=== PATIENT | male | born 1975 | race Caucasian/White ===

== ENCOUNTER 2024-04-27 19:53 | Inpatient (IN) | payer MEDICAID, OTHER ==
--- NOTE | 2024-04-27 20:46 | ED ---
General Adult HPI - General Source: patient Mode of arrival: ambulatory Limitations: no limitations <Jace Norris - Last Filed: 04/28/24 16:26> <Rena Real - Last Filed: 04/28/24 16:58> - General Chief complaint: Psychiatric Symptoms Stated complaint: petition Time Seen by Provider: 04/27/24 20:33 - History of Present Illness Initial comments: Patient brought to the ED by law enforcement for evaluation of suicidal ideations. Patient states that he has felt suicidal for the past several days. Patient states that he has had thoughts of jumping off of a bridge, but has not done so. Patient denies any suicidal attempt. Patient states that he has been diagnosed with depression in the past, but he states that he is currently not taking any medications. Patient denies illicit drug use. Patient denies medication abuse or overdose. Patient does admit to drinking alcohol occasionally, and he states that he has had some beers to drink tonight, but he cannot tell me exactly how many. Patient denies trauma/injury/fall, any pain, fever or chills, headache, focal neuro deficit, chest pain, dyspnea, p alpitations, dizziness, abdominal pain, nausea or vomiting, or any other symptoms or complaints. Patient has been petitioned. (Jace Norris) - Related Data Home Medications Medication Instructions Recorded Confirmed Vitamin B Complex/Folic Acid 0.4 mg PO DAILY 04/28/24 04/28/24 [Vitamin B Complex Tablet] Allergies Allergy/AdvReac Type Severity Reaction Status Date / Time Sulfa (Sulfonamide Allergy Unknown Verified 04/28/24 08:30 Antibiotics) Childhood Review of Systems ROS Other: All systems not noted in ROS Statement are negative. <Jcae Norris - Last Filed: 04/28/24 16:26> ROS Other: All systems not noted in ROS Statement are negative. <Rena Real - Last Filed: 04/28/24 16:58> ROS Statement: Those systems with pertinent positive or pertinent negative responses have been documented in the HPI. Past Medical History Past Medical History: Unable to Obtain History of Any Multi-Drug Resistant Organisms: Unobtainable Past Surgical History: Unable to Obtain Past Psychological History: Unable to Obtain Smoking Status: Unknown if ever smoked Past Alcohol Use History: Unable to Obtain Past Drug Use History: Unable to Obtain <Jace Norris - Last Filed: 04/28/24 16:26> General Exam Limitations: no limitations General appearance: alert, appears intoxicated Head exam: Present: atraumatic, normocephalic Eye exam: Present: PERRL, EOMI ENT exam: Present: mucous membranes moist Respiratory exam: Present: normal lung sounds bilaterally. Absent: respiratory distress, wheezes, rales, rhonchi, stridor Cardiovascular Exam: Present: regular rate, normal rhythm, normal heart sounds, other (Normal radial pulses bilaterally) GI/Abdominal exam: Present: soft. Absent: distended, tenderness, guarding Extremities exam: Absent: tenderness, pedal edema Neurological exam: Present: alert, oriented X3, CN II-XII intact. Absent: motor sensory deficit Psychiatric exam: Present: depressed Skin exam: Present: warm, dry, intact, normal color <MaurizioJace pickens - Last Filed: 04/28/24 16:26> Course <MaurizioJace pickens - Last Filed: 04/28/24 16:26> Vital Signs 04/27/24 04/28/24 19:55 00:34 Temperature 98 F Pulse Rate 89 77 Respiratory 18 14 Rate Blood Pressure 131/84 103/57 O2 Sat by Pulse 97 95 Oximetry - Reevaluation(s) Reevaluation #1: 04/27/24 23:13 Patient was endorsed to Dr. Harding (secondary to end of my shift) with EPS evaluation for placement still pending. (Jace Norris) Medical Decision Making <Jace Norris - Last Filed: 04/28/24 16:26> <Rena Real - Last Filed: 04/28/24 16:58> - Medical Decision Making Was pt. sent in by a medical professional or institution (, PA, PRIMARY MONTESSORI TEACHER, urgent care, hospital, or fci...) When possible be specific @ -No Did you speak to anyone other than the patient for history (EMS, parent, family, police, friend...)? What history was obtained from this source @ -No Did you review nursing and triage notes (agree or disagree)? Why? @ -I reviewed and agree with nursing and triage notes Were old charts reviewed (outside hosp., previous admission, EMS record, old EKG, old radiological studies, urgent care reports/EKG's, fci records)? Report findings @ -No old charts were reviewed Differential Diagnosis (chest pain, altered mental status, abdominal pain women, abdominal pain men, vaginal bleeding, weakness, fever, dyspnea, syncope, headache, dizziness, GI bleed, back pain, seizure, CVA, palpatations, mental health, musculoskeletal)? @ -Suicidal ideations, depression, anxiety, bipolar disorder, psychiatric disease, alcohol abuse, drug abuse, this is not a complete list. EKG interpreted by me (3pts min.). @ -None done X-rays interpreted by me (1pt min.). @ -None done CT interpreted by me (1pt min.). @ -None done U/S interpreted by me (1pt. min.). @ -None done What testing was considered but not performed or refused? (CT, X-rays, U/S, labs)? Why? @ -None What meds were considered but not given or refused? Why? @ -None Did you discuss the management of the patient with other professionals (professionals i.e. , PA, PRIMARY MONTESSORI TEACHER, lab, RT, psych nurse, social media manager, manager of internal, teacher, medical corps officer, caseworker intake)? Give summary @ -No Was smoking cessation discussed for >3mins.? @ -No Was critical care preformed (if so, how long)? @ -No Were there social determinants of health that impacted care today? How? (Homelessness, low income, unemployed, alcoholism, drug addiction, transportation, low edu. Level, literacy, decrease access to med. care, long term, rehab)? @ -No Was there de-escalation of care discussed even if they declined (Discuss DNR or withdrawal of care, Hospice)? DNR status @ -No What co-morbidities impacted this encounter? (DM, HTN, Smoking, COPD, CAD, Cancer, CVA, ARF, Chemo, Hep., AIDS, mental health diagnosis, sleep apnea, morbid obesity)? @ -None Was patient admitted / discharged? Hospital course, mention meds given and route, prescriptions, significant lab abnormalities, going to OR and other pertinent info. @ -Patient brought to the ED by law enforcement due to suicidal ideations. Patient has been petitioned. Patient is currently awaiting EPS evaluation for placement. Patient was endorsed to Dr. Harding (secondary to end of my shift). (Jace Norris) Was patient admitted / discharged? Hospital course, mention meds given and route, prescriptions, significant lab abnormalities, going to OR and other pertinent info. @ -EPS does evaluate the patient and feels that the patient needs to be admitted. He does sign himself in Undiagnosed new problem with uncertain prognosis? @ -No Drug Therapy requiring intensive monitoring for toxicity (Heparin, Nitro, Insulin, Cardizem)? @ -No Were any procedures done? @ -No Diagnosis/symptom? @ -Acute depression, suicidal ideations Acute, or Chronic, or Acute on Chronic? @ -Acute Uncomplicated (without systemic symptoms) or Complicated (systemic symptoms)? @ -Complicated Side effects of treatment? @ -No Exacerbation, Progression, or Severe Exacerbation? @ -No Poses a threat to life or bodily function? How? (Chest pain, USA, ID, pneumonia, PE, COPD, DKA, ARF, appy, cholecystitis, CVA, Diverticulitis, Homicidal, Suicidal, threat to staff... and all critical care pts) @ -Yes as patient wants to harm himself (Rena Real) - Lab Data Lab Results 04/27/24 04/28/24 Range/Units 20:57 01:43 Urine Opiates Screen Not Detected (NotDetected) Ur Oxycodone Screen Not Detected (NotDetected) Urine Methadone Screen Not Detected (NotDetected) Ur Barbiturates Screen Not Detected (NotDetected) U Tricyclic Antidepress Not Detected (NotDetected) Ur Phencyclidine Scrn Not Detected (NotDetected) Ur Amphetamines Screen Not Detected (NotDetected) U Methamphetamines Scrn Not Detected (NotDetected) U Benzodiazepines Scrn Not Detected (NotDetected) Urine Cocaine Screen Not Detected (NotDetected) U Marijuana (THC) Screen Not Detected (NotDetected) Influenza Type A (PCR) Not Detected (Not Detectd) Influenza Type B (PCR) Not Detected (Not Detectd) RSV (PCR) Not Detected (Not Detectd) SARS-CoV-2 (PCR) Not Detected (Not Detectd) Disposition Is patient prescribed a controlled substance at d/c from ED?: No <Jace Norris - Last Filed: 04/28/24 16:26> <Rena Real - Last Filed: 04/28/24 16:58> Clinical Impression: Suicidal ideation, Alcohol abuse Disposition: TRANSFER TO PSYCH HOSP/UNIT Condition: Stable
[2024-04-28 03:02] LABS: Amphetamine Screen,Urine Not Detected (NotDetected); Barbiturate Screen,Urine Not Detected (NotDetected); Benzodiazepines Screen,Urine Not Detected (NotDetected); Cocaine Screen,Urine Not Detected (NotDetected); Methadone Screen, Urine Not Detected (NotDetected); Opiate Screen,Urine Not Detected (NotDetected); Oxycodone Screen, Urine Not Detected (NotDetected); Phencyclidine Screen,Urine Not Detected (NotDetected); Tricyclic Antidepressant,Urine Not Detected (NotDetected); Urn Cannabinoid Scrn Not Detected (NotDetected)
[2024-04-28] MEDS ORDERED: MAG HYDROX/AL HYDROX/SIMETH 30 ML CUP PO PRN (15:44)
[2024-04-28] MEDS ORDERED: MAGNESIUM HYDROXIDE 2,400 MG/30 ML CUP PO PRN (15:44)
[2024-04-28] MEDS ORDERED: LORazepam 1 MG TAB PO PRN ×2 (15:44)
[2024-04-28] MEDS ORDERED: ACETAMINOPHEN TAB 325 MG TAB PO PRN (15:44)
[2024-04-28 17:06] LABS: Appearance,Urine Clear (Clear); Bilirubin,Urine Negative (Negative); Blood,Urine Negative (Negative); Color,Urine Colorless; Glucose,Urine (UA) Negative (Negative); Ketones,Urine Negative (Negative); Leukocyte Esterase,Urine Negative (Negative); Nitrite,Urine Negative (Negative); Protein,Urine Negative (Negative); Specific Gravity,Urine 1.012 (1.001-1.035); Urobilinogen,Urine <2.0 mg/dL (<2.0)
[2024-04-28] MEDS ORDERED: hydrOXYzine HCL 50 MG/ML 1 ML VIAL IM PRN (18:00)
[2024-04-28] MEDS: hydrOXYzine pamoate 25 MG CAP PO SCH (18:39)
[2024-04-28] MEDS: IBUPROFEN 600 MG TAB PO PRN (18:40)
--- NOTE | 2024-04-29 03:31 | P.CONS ---
History of Present Illness - Reason for Consult Consult date: 04/29/24 - History of Present Illness The patient is a 48-year-old male with no known PMH who presents to the emergency room with complaints of depression and suicidal ideation. The patient was admitted to the mental health unit where he was seen and evaluated. Patient notes that he has had multiple stays at [facility] due to his alcohol abuse for which he recently relapsed. Patient did not wish to talk about how much he drinks. He denied any substance use. Reports currently being homeless. Notes that he is depressed as he is unable to secure employment due to his significant DUI history. Denied experiencing any physical complaints at the time of interview. Denied experiencing chest discomfort, shortness of breath, fever, chills, cough, nausea, vomiting, abdominal pain, diarrhea. Review of systems: Pertinent positives and negatives as discussed in HPI, a complete review of systems was performed and all other systems are negative. Physical examination: General: non toxic, no distress, appears at stated age, overweight Derm: no unusual rashes/lesions, no unusual ecchymoses, warm, dry Head: atraumatic, normocephalic, symmetric Eyes: EOMI, no lid lag, anicteric sclera ENT: Nose and ears atraumatic, no thrush, no pharyngeal erythema Neck: trachea midline, supple Mouth: no lip lesion, mucus membranes moist Cardiovascular: S1S2 reg, no murmur, no edema Lungs: CTA bilateral, no rhonchi, no rales , no accessory muscle use Abdominal: soft, nontender to palpation, no guarding Ext: no gross muscle atrophy, no contractures, Neuro: No gross focal neuro deficits noted Psych: Alert, oriented, appropriate affect Assessment: Alcohol abuse Depression and suicidal ideation Imaging: None performed Data Review: Laboratory evaluation reviewed with UA and urine toxicology unremarkable with respiratory viral panel also negative Plan: Advised on the importance of cessation Defer management of depression and suicidal ideation to the primary psychiatry service Thank you for allowing us to participate in the care of this patient. We will follow peripherally. Do not hesitate to contact us with questions. Someone can be reached from the [facility] hospitalist group at all hours of the day at [phone]. Past Medical History Past Medical History: Unable to Obtain Additional Past Medical History / Comment(s): Eczema History of Any Multi-Drug Resistant Organisms: Unobtainable Past Surgical History: Unable to Obtain Past Anesthesia/Blood Transfusion Reactions: No Reported Reaction Smoking Status: Current every day smoker, Unknown if ever smoked - Past Family History Mother History Unknown: Yes Medications and Allergies Home Medications Medication Instructions Recorded Confirmed Type Vitamin B Complex/Folic Acid 0.4 mg PO DAILY 04/28/24 04/28/24 History [Vitamin B Complex Tablet] Allergies Allergy/AdvReac Type Severity Reaction Status Date / Time Sulfa (Sulfonamide Allergy Unknown Verified 04/28/24 08:30 Antibiotics) Childhood Physical Exam Vitals: Vital Signs Temp Pulse Pulse Resp BP BP Pulse Ox 04/28/24 19:03 98.6 F 85 122/61 98 04/28/24 18:12 98.1 F 68 18 138/85 99 Intake and Output 04/28/24 04/28/24 04/29/24 14:59 22:59 06:59 Other: Weight 85.956 kg
[2024-04-29] MEDS: NICOTINE 21MG/24HR PATCH TRANSDERM SCH (07:57)
[2024-04-29] MEDS: MULTIVITAMINS, THERA 1 EACH TAB PO SCH (07:58)
[2024-04-29] MEDS: FOLIC ACID 1 MG TAB PO SCH (07:58)
[2024-04-29] MEDS: THIAMINE 100 MG TAB PO SCH (07:58)
[2024-04-29 08:38] LABS: Basophils % (A) 1 %; Eosinophils # (A) 0.2 k/uL (0-0.7); Eosinophils % (A) 4 %; HGB 16.5 gm/dL (13.0-17.5); Lymphocytes % (A) 38 %; MCH 32.3 pg (25.0-35.0); MCHC 32.3 g/dL (31.0-37.0); Mean Platelet Volume 7.5; Monocytes # (A) 0.5 k/uL (0-1.0); Monocytes % (A) 10 %; Neutrophils # (A) 2.3 k/uL (1.3-7.7); Neutrophils % (A) 45 %; Platelet Count 166 k/uL (150-450); RDW 11.9 % (11.5-15.5); WBC 5.2 k/uL (3.8-10.6)
[2024-04-29 08:57] LABS: ALT 33 U/L (4-49); AST 38 U/L (17-59); African American GFR (CKD) >90 (>60 ml/min/1.73 sqM); Albumin 4.4 g/dL (3.5-5.0); Alkaline Phosphatase 75 U/L (38-126); Anion Gap 6 mmol/L; Bilirubin, Delta 0.3 mg/dL (0.0-0.2); Bilirubin,Unconjugated 1.4 mg/dL (0.0-1.1); Blood Urea Nitrogen 13 mg/dL (9-20); Calcium 9.1 mg/dL (8.4-10.2); Carbon Dioxide 31 mmol/L (22-30); Chloride 103 mmol/L (98-107); Glucose 92 mg/dL (74-99); Non-African American GFR(CKD) >90 (>60 ml/min/1.73 sqM); Potassium 4.3 mmol/L (3.5-5.1); Sodium 140 mmol/L (137-145); Total Bilirubin 1.7 mg/dL (0.2-1.3); Total Protein 7.1 g/dL (6.3-8.2)
[2024-04-29] MEDS ORDERED: hydrOXYzine pamoate 25 MG CAP PO PRN (12:17)
--- NOTE | 2024-04-29 12:37 | P.HP ---
Psychiatric H&P - . H&P Date: 04/29/24 History & Physical: Allergies Allergy/AdvReac Type Severity Reaction Status Date / Time Sulfa (Sulfonamide Allergy Unknown Verified 04/28/24 08:30 Antibiotics) Childhood Vital Signs Temp 98.4 F 04/29/24 06:34 Pulse 57 L 04/29/24 06:34 Resp 16 04/29/24 06:34 BP 106/63 04/29/24 06:34 Pulse Ox 95 04/29/24 06:34 FiO2 Intake & Output 04/28/24 04/29/24 04/29/24 18:59 06:59 18:59 Weight 859.558 kg 85.956 kg Laboratory Last Values WBC 5.2 k/uL (3.8-10.6) 04/29/24 08:06 RBC 5.10 m/uL (4.30-5.90) 04/29/24 08:06 Hgb 16.5 gm/dL (13.0-17.5) 04/29/24 08:06 Hct 51.0 % (39.0-53.0) 04/29/24 08:06 MCV 100.0 fL (80.0-100.0) 04/29/24 08:06 MCH 32.3 pg (25.0-35.0) 04/29/24 08:06 MCHC 32.3 g/dL (31.0-37.0) 04/29/24 08:06 RDW 11.9 % (11.5-15.5) 04/29/24 08:06 Plt Count 166 k/uL (150-450) 04/29/24 08:06 MPV 7.5 04/29/24 08:06 Neutrophils % 45 % 04/29/24 08:06 Lymphocytes % 38 % 04/29/24 08:06 Monocytes % 10 % 04/29/24 08:06 Eosinophils % 4 % 04/29/24 08:06 Basophils % 1 % 04/29/24 08:06 Neutrophils # 2.3 k/uL (1.3-7.7) 04/29/24 08:06 Lymphocytes # 2.0 k/uL (1.0-4.8) 04/29/24 08:06 Monocytes # 0.5 k/uL (0-1.0) 04/29/24 08:06 Eosinophils # 0.2 k/uL (0-0.7) 04/29/24 08:06 Basophils # 0.0 k/uL (0-0.2) 04/29/24 08:06 Sodium 140 mmol/L (137-145) 04/29/24 08:06 Potassium 4.3 mmol/L (3.5-5.1) 04/29/24 08:06 Chloride 103 mmol/L (98-107) 04/29/24 08:06 Carbon Dioxide 31 mmol/L (22-30) H 04/29/24 08:06 Anion Gap 6 mmol/L 04/29/24 08:06 BUN 13 mg/dL (9-20) 04/29/24 08:06 Creatinine 0.79 mg/dL (0.66-1.25) 04/29/24 08:06 Est GFR (CKD-EPI)AfAm >90 (>60 ml/min/1.73 sqM) 04/29/24 08:06 Est GFR (CKD-EPI)NonAf >90 (>60 ml/min/1.73 sqM) 04/29/24 08:06 Glucose 92 mg/dL (74-99) 04/29/24 08:06 Calcium 9.1 mg/dL (8.4-10.2) 04/29/24 08:06 Total Bilirubin 1.7 mg/dL (0.2-1.3) H 04/29/24 08:06 Conjugated Bilirubin 0.0 mg/dL (0.0-0.3) 04/29/24 08:06 Unconjugated Bilirubin 1.4 mg/dL (0.0-1.1) H 04/29/24 08:06 Delta Bilirubin 0.3 mg/dL (0.0-0.2) H 04/29/24 08:06 AST 38 U/L (17-59) 04/29/24 08:06 ALT 33 U/L (4-49) 04/29/24 08:06 Alkaline Phosphatase 75 U/L (38-126) 04/29/24 08:06 Total Protein 7.1 g/dL (6.3-8.2) 04/29/24 08:06 Albumin 4.4 g/dL (3.5-5.0) 04/29/24 08:06 Urine Color Colorless 04/28/24 01:43 Urine Appearance Clear (Clear) 04/28/24 01:43 Urine pH 5.0 (5.0-8.0) 04/28/24 01:43 Ur Specific [place] 1.012 (1.001-1.035) 04/28/24 01:43 Urine Protein Negative (Negative) 04/28/24 01:43 Urine Glucose (UA) Negative (Negative) 04/28/24 01:43 Urine Ketones Negative (Negative) 04/28/24 01:43 Urine Blood Negative (Negative) 04/28/24 01:43 Urine Nitrite Negative (Negative) 04/28/24 01:43 Urine Bilirubin Negative (Negative) 04/28/24 01:43 Urine Urobilinogen <2.0 mg/dL (<2.0) 04/28/24 01:43 Ur Leukocyte Esterase Negative (Negative) 04/28/24 01:43 Urine Opiates Screen Not Detected (NotDetected) 04/28/24 01:43 Ur Oxycodone Screen Not Detected (NotDetected) 04/28/24 01:43 Urine Methadone Screen Not Detected (NotDetected) 04/28/24 01:43 Ur Barbiturates Screen Not Detected (NotDetected) 04/28/24 01:43 U Tricyclic Antidepress Not Detected (NotDetected) 04/28/24 01:43 Ur Phencyclidine Scrn Not Detected (NotDetected) 04/28/24 01:43 Ur Amphetamines Screen Not Detected (NotDetected) 04/28/24 01:43 U Methamphetamines Scrn Not Detected (NotDetected) 04/28/24 01:43 U Benzodiazepines Scrn Not Detected (NotDetected) 04/28/24 01:43 Urine Cocaine Screen Not Detected (NotDetected) 04/28/24 01:43 U Marijuana (THC) Screen Not Detected (NotDetected) 04/28/24 01:43 Influenza Type A (PCR) Not Detected (Not Detectd) 04/27/24 20:57 Influenza Type B (PCR) Not Detected (Not Detectd) 04/27/24 20:57 RSV (PCR) Not Detected (Not Detectd) 04/27/24 20:57 SARS-CoV-2 (PCR) Not Detected (Not Detectd) 04/27/24 20:57 04/29/24 09:13 IDENTIFYING DATA: Patient is a 48-year-old male. Kicked out of sober living house Monday. . 2 children. Unemployed. HPI: Patient presented to the hospital on 04/28. As per EPS note, "Patient was brought in by EMS for suicidal ideation with plan to jump off bridge. Patient was assessed in ER12 from [id number]. Patient states that he was feeling overwhelmed and was having a panic attack, and began having thoughts of killing himself with plan. Patient states he called EMS on himself for safety. Patient states he is depressed, hopeless at this time. Patient states he is overwhelmed with looking for a job. Patient states he has been sober from alcohol for 45 days and relapsed yesterday and started drinking because he felt like "life was too much". Patient verbalizes good appetite, fair sleep, and denies complaints with attending to hygiene. Patient states he has been trying to find a job, but has not had any luck. Patient denies having any hobbies or denies having anything that brings him veronica. Patient states he is depressed he does not have anyone to talk to besides the other residents in the sober living. But denies having any family or friends support system. Patient denies homicidal ideation. Patient denies delusions including paranoia, and no delusional statements noted on assessment. Patient verbalizes that he has attempted to get into counselling or outpatient mental health but has had no luck getting in touch with providers. Patient denies any history of inpatient psychiatric treatment." Upon today's assessment, he states that he relapsed on alcohol, with the stress of not finding a job. He got kicked out of the sober living house he was staying at, but is welcome back once he gets treatment. He states he drank all day Monday a monday, and was acting crazy in public, and it was his cry for help. He states he called the police early Monday, and told the police that he was going to go crazy that night, and went to the bus stop to lock his bike up. He is denying any withdraw symptoms from alcohol. He states that he has no problems with sleep. He states that the assisted told him he could only stay there 3 days, so he came to the hospital. Patient states that he would like to get into rehab. Import Export Agent encouraged patient to participate in treatment, patient verbalized understanding. Patient denies any suicidal or homicidal ideations intent or plan. At this time patient denies any auditory or visual hallucinations. Patient denies any flight of ideas racing thoughts and increased in goal directed behavior. Patient admits to using alcohol. PAST PSYCHIATRIC HISTORY: Patient states that he has never had inpatient psychiatric treatment, and he denies any outpatient psychiatric follow-up or psychiatric medications. He states he stopped all meds in 2019, and at that time was diagnosed as major depressive disorder. [Patient denies any history of suicide attempts in the past.] PMH:As per ER note ALLERGIES: as per EMR CHEMICAL DEPENDENCY HISTORY: as per HPI FAMILY PSYCHIATRIC/SUBSTANCE USE HISTORY: [denies] SOCIAL HISTORY: Patient was born and raised in [place], [place]. He has done some college, . 2 children. unemployed. Has has 3 DUI's, and been in [facility] this.. MENTAL STATUS EXAM: General Appearance: Patient appears to be [] stated age is alert, [directable, and attempts to cooperate]. Patient appears to have fair hygiene and grooming. Short hair, trimmed garza. Dressed casually, wearing glasses. Behavior: Patient is seated without any agitated behavior. Poor eye contact. Speech: Patient's speech is [fluent and nonpressured.] Mood/Affect: Patient reports their mood is [depressed and stressed out], affect is congruent and constricted. Suicidality/Homicidality: Patient denies having any homicidal ideation intent or plan. [Denies any suicidal ideations intent or plan] Perceptions: Patient denies any visual hallucinations [and denies any auditory hallucinations] Though content/process: [There is no evidence of any delusional thought content and seems resistive to treatment. Memory and concentration: AOX3, grossly intact for the purposes of this session. Can spell "WORLD" backwards Judgment and insight: [poor] STRENGTHS/WEAKNESSES: strength is that patient is [resilient]. Weakness is that patient [has poor judgment and is impulsive] INTELLECT: [average] IMPRESSIONS: major depressive disorder, without psychotic features Alcohol use disorder nicotine dependance PLAN: -Patient is admitted under [voluntary] status to MHU for stabilization of psychiatric symptoms and safety. Patient has signed adult voluntary form and medication consent] and is placed in patient's chart. -Medications : Will start patient on Cymbalta 30mg daily for depression/anxiety, buspar 5mg po bid for anxiety, Remeron 15mg qhs for sleep. Visteral PRN for anxiety. -Ativan [and Haldol] PRN for agitation/aggression [-Started thiamine, MVM for etoh use] [-CIWA protocol with Ativan PRN for ETOH withdrawal] [-Patient was counselled on substance abuse and desired to cut back on use] -Patient was informed of the risks, benefits and side effects of the medication [and patient verbally consented to taking the medications. ] -Internal Medicine consult to perform medical evaluation and physical. -NRT - patch -SW on board for discharge planning. Encourage patient to participate in groups to work on coping skills.
[2024-04-29] MEDS: busPIRone HCl 5 MG TAB PO SCH (12:43)
[2024-04-29] MEDS: DULoxetine HCL 30 MG CAPSULE.DR PO SCH (12:43)
[2024-04-29 16:06] LABS: LDL Cholesterol,Calculated 91.7 mg/dL (0.0-131.0)
[2024-04-29] MEDS: MIRTAZAPINE 15 MG TAB PO SCH (20:29)
--- NOTE | 2024-04-30 11:36 | P.PN ---
Progress Note - Text Progress Note Date: 04/30/24 Interval History: Patient was seen in group, and was directable and agreeable to speak with kary cochran in the office. He states that he is doing a bit better today, and he is no longer as anxious as he was. He said he don't feel as worried about things now. He endorses good sleep last night, he does state that he woke up early, around 5 am. He claims his appetite is good. Patient is interested in going to [facility] upon discharge. Patient is denying any withdraw symptoms. At this time patient denies any suicidal or homicidal ideations, intent or plan. Patient denies any auditory, visual hallucinations and denies any paranoia or delusions. Patient denies any side effects from the medications and has been compliant with meds. MENTAL STATUS EXAM: General Appearance: Patient appears to be stated age is alert, directable, and attempts to cooperate. Patient appears to have fair hygiene and grooming. Short hair, trimmed garza. Dressed casually, wearing glasses. Behavior: Patient is seated without any agitated behavior. improved eye contact. Speech: Patient's speech is [fluent and nonpressured. Mood/Affect: Patient reports their mood is a bit better, affect is congruent and constricted. Suicidality/Homicidality: Patient denies having any homicidal ideation intent or plan. [Denies any suicidal ideations intent or plan] Perceptions: Patient denies any visual hallucinations and denies any auditory hallucinations Though content/process: There is no evidence of any delusional thought content is linear, rambles at times, circumstantial. Memory and concentration: AOX3, grossly intact for the purposes of this session Judgment and insight: poor, mildly improving IMPRESSIONS: major depressive disorder, without psychotic features Alcohol use disorder nicotine dependance PLAN: -Patient is admitted under voluntary] status to MHU for stabilization of psychiatric symptoms and safety. Patient has signed adult voluntary form and medication consent] and is placed in patient's chart. -Medications :Cymbalta 30mg daily for depression/anxiety, increase buspar 10mg po bid for anxiety, Remeron 15mg qhs for sleep. Visteral PRN for anxiety. -Ativan [and Haldol] PRN for agitation/aggression -Started thiamine, MVM for etoh use] -CIWA protocol with Ativan PRN for ETOH withdrawal] -NRT - nicotine patch -SW on board for discharge planning. Encourage patient to participate in groups to work on coping skills. possible discharge in 2-3 days if patient is improving. awaiting [facility] approval and intake date.
[2024-04-30] MEDS: busPIRone HCl 10 MG TAB PO SCH (20:24)
--- NOTE | 2024-05-01 11:48 | P.PN ---
Progress Note - Text Progress Note Date: 05/01/24 Interval History: Patient was seen in the hallway, and was directable and agreeable to speak with consumer loan underwriter in the office. He states he is doing much better today, he feels calmer, and more patient. He is future orientated, and excited what is to come. He is feeling positive. He states his depression and anxiety are improving quite a bit with the medications. Patient is attending groups, and being social on the unit. He denies any withdraw symptoms. He is endorsing good sleep. He claims his a ppetite is good. Patient is interested in going to [place] upon discharge. Patient is denying any withdraw symptoms. At this time patient denies any suicidal or homicidal ideations, intent or plan. Patient denies any auditory, visual hallucinations and denies any paranoia or delusions. Patient denies any side effects from the medications and has been compliant with meds. MENTAL STATUS EXAM: General Appearance: Patient appears to be stated age is alert, directable, and attempts to cooperate. Patient appears to have fair hygiene and grooming. Short hair, trimmed garza. Dressed casually, wearing glasses. Behavior: Patient is seated without any agitated behavior. improved eye contact. Speech: Patient's speech is fluent and nonpressured. Mood/Affect: Patient reports their mood is much better, positive, affect is congruent and constricted. mildly improving Suicidality/Homicidality: Patient denies having any homicidal ideation intent or plan. Denies any suicidal ideations intent or plan Perceptions: Patient denies any visual hallucinations and denies any auditory hallucinations Though content/process: There is no evidence of any delusional thought content is linear, mildly improving Memory and concentration: AOX3, grossly intact for the purposes of this session Judgment and insight: poor, mildly improving IMPRESSIONS: major depressive disorder, without psychotic features Alcohol use disorder nicotine dependance PLAN: -Patient is admitted under voluntary status to MHU for stabilization of psychiatric symptoms and safety. Patient has signed adult voluntary form and med ication consent and is placed in patient's chart. -Medications : Cymbalta 30 mg daily for depression/anxiety, buspar 10 mg po bid for anxiety, Remeron 15 mg qhs for sleep. Visteral PRN for anxiety. -Ativan and Haldol PRN for agitation/aggression -Started thiamine, MVM for etoh use -KRYSTLE protocol with Ativan PRN for ETOH withdrawal -NRT - nicotine patch -SW on board for discharge planning. Encourage patient to participate in groups to work on coping skills. possible discharge in 2-3 days if patient is improving. awaiting [facility] approval and intake date.
[2024-05-02] MEDS ORDERED: LORazepam 1 MG TAB PO PRN (11:54)
--- NOTE | 2024-05-02 11:58 | P.PN ---
Progress Note - Text Progress Note Date: 05/02/24 Interval History: Patient was seen in group, and was directable and agreeable to speak with magazine writer in the office. He states he is doing pretty good today. He is not endorsing any anxiety or depression today. He has accepted the fact that he needs to get his mental health and sobriety under control. He is endorsing good sleep through the night. He claims his appetite is good. Patient continues to show interest in going to [place] upon discharge. Patient is denying any withdraw symptoms. At this time patient denies any suicidal or homicidal ideations, intent or plan. Patient denies any auditory, visual hallucinations and denies any paranoia or delusions. Patient denies any side effects from the medications and has been compliant with meds. MENTAL STATUS EXAM: General Appearance: Patient appears to be stated age is alert, directable, and attempts to cooperate. Patient appears to have fair hygiene and grooming. Short hair, trimmed garza. Dressed casually, wearing glasses. Behavior: Patient is seated without any agitated behavior. improved eye contact. Speech: Patient's speech is fluent and nonpressured. Mood/Affect: Patient reports their mood is pretty good and optimistic, affect is congruent and constricted. mildly improving Suicidality/Homicidality: Patient denies having any homicidal ideation intent or plan. Denies any suicidal ideations intent or plan Perceptions: Patient denies any visual hallucinations and denies any auditory hallucinations Though content/process: There is no evidence of any delusional thought content is linear and goal orientated, mildly improving Memory and concentration: AOX3, grossly intact for the purposes of this session Judgment and insight: poor, mildly improving IMPRESSIONS: major depressive disorder, without psychotic features Alcohol use disorder nicotine dependance PLAN: -Patient is admitted under voluntary status to MHU for stabilization of psychiatric symptoms and safety. Patient has signed adult voluntary form and medication consent and is placed in patient's chart. -Medications : Cymbalta 30 mg daily for depression/anxiety, buspar 10 mg po bid for anxiety, Remeron 15 mg qhs for sleep. Vistaril PRN for anxiety. -Ativan and Haldol PRN for agitation/aggression -Started thiamine, MVM for etoh use -d/c [facility] protocol -NRT - nicotine patch -SW on board for discharge planning. Encourage patient to participate in groups to work on coping skills. Likely discharge Monday directly to rehab, if patient continues improving. awaiting [facility] approval and intake date.
--- NOTE | 2024-05-03 11:44 | P.PN ---
Progress Note - Text Progress Note Date: 05/03/24 Interval History: Patient was seen in group, and was directable and agreeable to speak with junior underwriter in the office. He states he is well today. He states that he is feeling pretty balanced today. He does complain that he got some restless legs last night, probably due to Remeron. He states that he would like to just have melatonin. He is accepted to [place], and will be going there upon discharge, on Monday morning. Patient offered no other complaints. At this time patient denies any suicidal or homicidal ideations, intent or plan. Patient denies any auditory, visual hallucinations and denies any paranoia or delusions. Patient denies any side effects from the medications and has been compliant with meds. MENTAL STATUS EXAM: General Appearance: Patient appears to be stated age is alert, directable, and attempts to cooperate. Patient appears to have fair hygiene and grooming. Short hair, trimmed garza. Dressed casually, wearing glasses. Behavior: Patient is seated without any agitated behavior. improved eye contact. Speech: Patient's speech is fluent and nonpressured. Mood/Affect: Patient reports their mood is pretty good and optimistic, affect is congruent and constricted. improving Suicidality/Homicidality: Patient denies having any homicidal ideation intent or plan. Denies any suicidal ideations intent or plan Perceptions: Patient denies any visual hallucinations and denies any auditory hallucinations Though content/process: There is no evidence of any delusional thought content is linear and goal orientated, improving Memory and concentration: AOX3, grossly intact for the purposes of this session Judgment and insight: improving IMPRESSIONS: major depressive disorder, without psychotic features Alcohol use disorder nicotine dependance PLAN: -Patient is admitted under voluntary status to MHU for stabilization of psychiatric symptoms and safety. Patient has signed adult voluntary form and medication consent and is placed in patient's chart. -Medications : Cymbalta 30 mg daily for depression/anxiety, buspar 10 mg po bid for anxiety, change Remeron 15 mg qhs prn for sleep. Vistaril PRN for anxiety. Add Melatonin 10mg qhs for sleep. -Ativan and Haldol PRN for agitation/aggression -Started thiamine, MVM for etoh use -NRT - nicotine patch -SW on board for discharge planning. Encourage patient to participate in groups to work on coping skills. Discharge Monday directly to rehab, if patient continues improving. Patient is approved for [place].
[2024-05-03] MEDS: MELATONIN 5 MG TABLET PO SCH (21:14)
[2024-05-04 07:56] VITALS: RESP 18
--- NOTE | 2024-05-04 13:40 | P.PN ---
Progress Note - Text Interval history: Patient was seen in his room and was directable and agreeable to speak with typewriter aligner. denies anxiety and withdrawal symptoms. At this time patient denies any suicidal or homicidal ideations intent or plan. Denies any Auditory or visual hallucinations. Patient denies any side effects from the medications and has b een compliant with meds. Mental status exam: General Appearance: [Patient appears to be older thanstated age is drowsy, directable, and cooperative.] Behavior: [No agitated behavior. Patient is calm and directable] Speech: Patient's speech is fluent and nonpressured. Mood/Affect: Mood is improving mildly, affect is congruent and constricted. Suicidality/Homicidality: Patient denies having any suicidal or homicidal ideation intent or plan. Perceptions: Patient denies any auditory or visual hallucinations. Though content/process: [There is no evidence of any delusional thought content and thought process is linear and goal-directed.] Memory and concentration: AOX3, grossly intact for the purposes of this session Judgment and insight: improving mildly Assessment/Plan: Continue with current diagnosis. Patient continues to meet criteria for inpatient psychiatric admission for symptom stabilization and safety.[Patient will be maintained on current psychotropic medication regimen.] Monitor for medication compliance and for any psychotropic medication side effects. Will continue to monitor ongoing response to treatment. Encouraged participation in milieu.
[2024-05-04] MEDS: MIRTAZAPINE 15 MG TAB PO PRN (21:02)
[2024-05-05 08:40] VITALS: BP 94/59; PULSE 62; TEMP 97.5
--- NOTE | 2024-05-05 10:04 | P.PN ---
Progress Note - Text Interval history: Patient was seen and was directable and agreeable to speak with account underwriter. denies anxiety and withdrawal symptoms. At this time patient denies any suicidal or homicidal ideations intent or plan. Denies any Auditory or visual hallucinations. Patient denies any side effects from the medications and has been compliant with meds. Mental status exam: General Appearance: [Patient appears to be stated age is alert, directable, and cooperative.] Behavior: [No agitated behavior. Patient is calm and directable] Speech: Patient's speech is fluent and nonpressured. Mood/Affect: Mood is improving mildly, affect is congruent and constricted. Suicidality/Homicidality: Patient denies having any suicidal or homicidal ideation intent or plan. Perceptions: Patient denies any auditory or visual hallucinations. Though content/process: [There is no evidence of any delusional thought content and thought process is linear and goal-directed.] Memory and concentration: AOX3, grossly intact for the purposes of this session Judgment and insight: improving mildly Assessment/Plan: Continue with current diagnosis. Patient continues to meet criteria for inpatient psychiatric admission for symptom stabilization and safety.[Patient will be maintained on current psychotropic medication regimen.] Monitor for medication compliance and for any psychotropic medication side effects. Will continue to monitor ongoing response to treatment. Encouraged participation in milieu.
--- NOTE | 2024-05-06 09:02 | P.DS ---
Providers Date of admission: 04/28/24 15:42 Expected date of discharge: 05/06/24 Attending physician: Haris Vega MD Consults: 04/28/24 15:44 Consult Physician Routine Consulting Provider: Ailyn Farooq Consult Reason/Comments: History and Physical Do you want consulting provider notified?: Yes Primary care physician: Stated None - Discharge Diagnosis(es) (1) Alcohol abuse Current Visit: Yes Status: Chronic Priority: High (2) Major depressive disorder Current Visit: Yes Status: Chronic Priority: Medium Hospital Course: Admission HPI: Admission note was completed by Dr. Vega "patient presented to the hospital on 04/28. As per EPS note, "Patient was brought in by EMS for suicidal ideation with plan to jump off bridge. Patient was assessed in ER12 from [id number]. Patient states that he was feeling overwhelmed and was having a panic attack, and began having thoughts of killing himself with plan. Patient states he called EMS on himself for safety. Patient states he is depressed, hopeless at this time. Patient states he is overwhelmed with looking for a job. Patient states he has been sober from alcohol for 45 days and relapsed yesterday and started drinking because he felt like "life was too much". Patient verbalizes good appetite, fair sleep, and denies complaints with attending to hygiene. Patient states he has been trying to find a job, but has not had any luck. Patient denies having any hobbies or denies having anything that brings him veronica. Patient states he is depressed he does not have anyone to talk to besides the other residents in the sober living. But denies having any family or friends support system. Patient denies homicidal ideation. Patient denies delusions including paranoia, and no delusional statements noted on assessment. Patient verbalizes that he has attempted to get into counselling or outpatient mental health but has had no luck getting in touch with providers. Patient denies any history of inpatient psychiatric treatment." Upon today's assessment, he states that he relapsed on alcohol, with the stress of not finding a job. He got kicked out of the sober living house he was staying at, but is welcome back once he gets treatment. He states he drank all day Monday and Monday, and was acting crazy in public, and it was his cry for help. He states he called the police early Monday, and told the police that he was going to go crazy that night, and went to the bus stop to lock his bike up. He is denying any withdraw symptoms from alcohol. He states that he has no problems with sleep. He states that the intermediate told him he could only stay there 3 days, so he came to the hospital. Patient states that he would like to get into rehab. Power Superintendent encouraged patient to participate in treatment, patient verbalized understanding. Patient denies any suicidal or homicidal ideations intent or plan. At this time patient denies any auditory or visual hallucinations. Patient denies any flight of ideas racing thoughts and increased in goal directed behavior. Patient admits to using alcohol." Hospital course: Upon admission to the unit patient was directable and agreeable to commence treatment and signed adult voluntary form. Patient got along well with other patients on the unit and followed unit protocol. Patient was compliant with the medications and denied any side effects throughout hospital course. Patient was started on Cymbalta 30 mg, BuSpar 10 mg twice daily, Remeron 15 mg, folate 1 mg, thiamine 100 mg, hydroxyzine 25 mg every 8 hours. Patient spoke of his stressors and engaged in therapy both group and individual. Patient was also seen by medical team for history and physical exam. Patient was placed on CIWA protocol alcohol withdrawal and had minimal problems. Throughout the course of the hospitalization patient gradually improved with regards to depressive and anxious mood, sleep and returned back to their baseline level of functioning became more future oriented with improved insight and judgment. On the day of discharge patient denied any suicidal or homicidal ideations intent or plan denied any auditory or visual hallucinations. Patient endorsed wanting to live for their health and family. The patient denied any access to guns or weapons. Patient denied any paranoia and did not endorse any delusions. Patient does have a significant history of substance abuse and was counseled on abstaining from all substances including alcohol and marijuana. Patient ended up agreeing to inpatient [facility] rehab. Patient was also counseled on the medications and need for regular compliance and was encouraged to follow-up with their outpatient appointment for mental health and also for primary care. Patient had voiced some problems with restless leg due to the Mirtazapine at discharge the dose will be decreased to 7.5 mg. Mental status exam: General Appearance: Patient appears to be his stated age is alert, pleasant, and cooperative. Patient is in no acute distress and has improved hygiene and grooming Behavior: Patient is calmly seated without any agitated behavior. Speech: Patient's speech is fluent and nonpressured. Mood/Affect: Patient reports their mood is "better", affect is congruent. Suicidality/Homicidality: Patient denies having any suicidal or homicidal ideation intent or plan. Perceptions: Patient denies any auditory or visual hallucinations. Though content/process: There is no evidence of any delusional thought content and thought process is linear and goal-directed. More future oriented Memory and concentration: AOX3, grossly intact for the purposes of this session. Judgment and insight: Chronically poor, however has improved with guarded prognosis Diagnosis: Major depressive disorder recurrent moderate episode Alcohol use disorder severe Impression: Day of discharge patient had noted no suicidal or homicidal ideations. He did note that he was still moderately depressed and anxious but improving. He denied any problems with sleep, energy, appetite or concentration. Plan: -Continue with discharge today as patient has improved and stabilized psychiatrically and is not currently an imminent threat to themself and/or others. Patient will remain at chronically elevated risk for harm to self and/or others due to their impulsivity and substance abuse. -Continue medications: Cymbalta 30 mg take 1 tablet by mouth once daily for depression/anxiety BuSpar 10 mg take 1 tablet by mouth twice daily for anxiety Remeron 30 mg take 0.5 tablets by mouth at bedtime for insomnia Hydroxyzine 25 mg take 1 tablet by mouth as needed for anxiety Thiamine 100 mg take 1 tablet by mouth once daily for alcohol use Folate 1 mg take 1 tablet by mouth once daily for alcohol use -Patient was counseled on the need for medication compliance and appropriate follow-up at mental health and also primary care for medical issues. Patient verbalized understanding and agreed. -Social work to help coordinate patients discharge today. also to ensure safe home environment that guns/weapons are either removed from the home or locked away. Social work also to arrange for patients follow up appointments with [facility] for psychiatric care along with follow up with primary care provider. -Patient counseled on abstaining from recreational drugs and marijuana and alcohol. Was informed/educated on the adverse effects on their physical and me ntal health. Patient verbally agreed and understood. -Patient was instructed to return to the hospital or seek immediate medical care if their psychiatric or medical symptoms do worsen or reoccur. INSERT DATA FORMATS Patient Condition at Discharge: Fair Plan - Discharge Summary Discharge Rx Participant: Yes New Discharge Prescriptions: New busPIRone HCl [Buspar] 10 mg PO BID 30 Days #60 tab DULoxetine HCL [Cymbalta] 30 mg PO DAILY 30 Days #30 cap Folic Acid 1 mg PO DAILY 30 Days #30 tab Nicotine 21Mg/24Hr Patch [Habitrol] 1 patch TRANSDERM DAILY 14 Days #14 patch Mirtazapine [Remeron] 7.5 mg PO HS PRN 30 Days #15 tab PRN Reason: Insomnia hydrOXYzine pamoate [Vistaril] 25 mg PO Q8HR PRN 30 Days #30 cap PRN Reason: Anxiety Thiamine [Vitamin B-1] 100 mg PO DAILY 30 Days #30 tab Discontinued Vitamin B Complex/Folic Acid [Vitamin B Complex Tablet] 0.4 mg PO DAILY Discharge Medication List DULoxetine HCL [Cymbalta] 30 mg PO DAILY 30 Days #30 cap 05/06/24 [Rx] Folic Acid 1 mg PO DAILY 30 Days #30 tab 05/06/24 [Rx] Mirtazapine [Remeron] 7.5 mg PO HS PRN 30 Days #15 tab 05/06/24 [Rx] Nicotine 21Mg/24Hr Patch [Habitrol] 1 patch TRANSDERM DAILY 14 Days #14 patch 05/06/24 [Rx] Thiamine [Vitamin B-1] 100 mg PO DAILY 30 Days #30 tab 05/06/24 [Rx] busPIRone HCl [Buspar] 10 mg PO BID 30 Days #60 tab 05/06/24 [Rx] hydrOXYzine pamoate [Vistaril] 25 mg PO Q8HR PRN 30 Days #30 cap 05/06/24 [Rx] Follow up Appointment(s)/Referral(s): None,Stated [Primary Care Provider] - 1-2 days [facility]Outside] - 05/06/24 12:00 pm (05/06 @ 12:00 intake please do not arrive any later then 2:00) Activity/Diet/Wound Care/Special Instructions: Avoid the use of street drugs and alcohol. Take all medications as prescribed. When you are in need of refills on your medications, please contact your medical provider and/or outpatient psychiatrist/provider to have this done. Please go to your scheduled outpatient appointment for aftercare treatment. If symptoms return or become worse, call the crisis line at and/or go to the nearest emergency room for evaluation. National Suicide Hotline 988 Discharge/Stand Alone Forms: AA Meetings [place] Discharge Disposition: HOME SELF-CARE
== END 2024-05-06 09:55 | disposition home or self-care (01) | DRG 751 ==
LOC: EC 19:53 → 3MHU 04-28 15:42
PROVIDERS: ADMIT Psychiatry & Neurology Psychiatry; ATTEND Psychiatry & Neurology Psychiatry
DX: F33.1 Major depressive disorder, recurrent, moderate (principal); F10.239 Alcohol dependence with withdrawal, unspecified; F17.200 Nicotine dependence, unspecified, uncomplicated; F41.9 Anxiety disorder, unspecified; G25.81 Restless legs syndrome; G47.00 Insomnia, unspecified; R45.851 Suicidal ideations; Z59.00 Homelessness unspecified; Z79.899 Other long term (current) drug therapy; Z11.52 Encounter for screening for COVID-19
CPT/HCPCS: 80053; 80061; 80306; 81003; 82075; 82248; 83036; 84443; 85025; 87636; 93005; 99285